=== PATIENT | female | born 1940 | race Caucasian/White ===

== ENCOUNTER 2016-08-23 23:50 | Emergency (ER) | payer BC, MEDICARE ==
[~2016-08-23 23:50] MED LIST: ASTELIN NAS; BETAPACE80 PO; C25 PO; CALTRAT600 PO; CENTRUM PO; CENTRUM TAB1 TAB PO; CINNAMON PO; CINNAMONPO PO; CLARIT10 PO; CYANO1000T PO; ELIQUIS 5 MG TAB5 MG PO; ESTRATEST PO; FISH OIL1200 MG PO; FISH-EPA1000 MG PO; LEVOTHROID25 MCG PO; LEVOTHYROXIN50 MCG PO; LOP25 PO; MELATONIN5 M1 PO; METAMUCIL CAN7 OZ PO; METHOC500B PO; METPAKSF PO; NAC 600 PO; OCUVITE PO; OS500+D PO; P10 PO; PCET PO; PRILO PO; PROAIR HFA INH; SYMBICORT 160/41 INH INH; VITAMIN D1000 UNI1 PO; VITC500 PO
== END 2016-08-24 02:02 | disposition home or self-care (01) ==
LOC: ER 23:50
DX: T45.511A Poisoning by anticoagulants, accidental (unintentional), initial encounter (principal); Z79.899 Other long term (current) drug therapy
CPT/HCPCS: 99284

== ENCOUNTER 2016-09-17 18:40 | Emergency (ER) | payer BC, MEDICARE ==
[2016-09-17 18:14] LABS: BASOPHILS 0.3 %; BASOPHILS ABSOLUTE 0.02 10/3/uL (0.0-0.16); EOSINOPHILS 2.4 %; EOSINOPHILS ABSOLUTE 0.18 10/3/uL (0.0-0.53); ER CBC TAT 0 Hrs 07 Mins; HEMATOCRIT 37.3 % (36.0-48.0); HEMOGLOBIN 12.7 g/dL (12.0-16.0); IMMATURE GRANULOCYTES 0.8 %; IMMATURE GRANULOCYTES ABSOLUTE 0.06 10/3/uL (0.0-0.11); LYMPHOCYTES 27.3 %; LYMPHOCYTES ABSOLUTE 2.06 10/3/uL (0.67-4.30); MEAN PLATELET VOLUME 9.8 fL (9.2-13.0); MONOCYTES 7.7 %; MONOCYTES ABSOLUTE 0.58 10/3/uL (0.21-1.20); NEUTROPHILS 61.5 %; NEUTROPHILS ABSOLUTE 4.65 10/3/uL (2.02-8.40); PLATELET COUNT 278 10/3/uL (150-400); RBC DISTRIBUTION WIDTH 14.2 % (12.0-16.0); WHITE BLOOD CELLS 7.6 10/3/uL (4.5-10.5)
[2016-09-17 18:15] LABS: MANUAL DIFF NO %
[2016-09-17 18:33] LABS: ALBUMIN 3.7 G/DL (3.5-5.0); CALCIUM, SERUM 9.9 MG/DL (8.5-10.4); CHLORIDE, SERUM 102 MMOL/L (96-112); CO2 (CARBON DIOXIDE) 27 MMOL/L (24-34); CREATININE 1.03 MG/DL (0.55-1.02); DIRECT BILIRUBIN 0.3 MG/DL (0.0-0.4); GFR AFRICAN AMERICAN 62 ML/MIN (>=60); GFR NON AFRICAN AMERICAN 54 ML/MIN (>=60); GLOBULIN 3.6 G/DL (2.5-4.1); POTASSIUM, SERUM 4.3 MMOL/L (3.5-5.3); SGOT(AST) 56 U/L (5-40); SGPT(ALT) 56 U/L (5-65); SODIUM, SERUM 139 MMOL/L (135-148); TOTAL PROTEIN 7.3 G/DL (6.0-8.5)
[2016-09-17 18:34] LABS: ALKALINE PHOSPHATASE 99 U/L (45-117); BUN (BLOOD UREA NITROGEN) 9 MG/DL (6-23); GLUCOSE, SERUM 135 MG/DL (60-99); TOTAL BILIRUBIN 1.3 MG/DL (0-1.2)
== END 2016-09-17 21:20 | disposition home or self-care (01) ==
LOC: ER 18:40
PROVIDERS: Emergency Medicine
DX: S09.90XA Unspecified injury of head, initial encounter (principal); S29.012A Strain of muscle and tendon of back wall of thorax, initial encounter; S39.012A Strain of muscle, fascia and tendon of lower back, initial encounter; J45.909 Unspecified asthma, uncomplicated; I48.91 Unspecified atrial fibrillation; Z79.52 Long term (current) use of systemic steroids; Z79.899 Other long term (current) drug therapy; W19.XXXA Unspecified fall, initial encounter
CPT/HCPCS: 70450; 72128; 72131; 80053; 82248; 83690; 85025; 93005; 96374; 99284; J1170; J2405